=== PATIENT | male | born 1955 | race Caucasian/White ===

== ENCOUNTER 2017-03-08 11:48 | Emergency (ER) | payer SELFPAY ==
[~2017-03-08] VITALS: Ht 185.4 cm; Wt 96.4 kg
[2017-03-08 11:50] VITALS: BP 120/92; PULSE 97; RESP 18; TEMP 98.5; O2SAT 96
[2017-03-08] MEDS ORDERED: DOXY100C PO ×2 (12:33→18:54)
--- NOTE | 2017-03-08 12:34 | PD ---
HPI Chief Complaint: Laceration/Skin Injury Time Seen by Provider: 12:00 Travel History International Travel<30 days: Yes Contact w/Intl Traveler<30days: Yes Name of Country Traveled to: [place] Traveled to known affect area: Yes History of Present Illness HPI 61-year-old male presents emergency department for evaluation of right hand lacerations after falling off his paddle board onto oyster bed. Patient has 3 lacerations to the right palm. He has full range of motion of all 5 digits. He has normal sensation. He reports pain at site of the laceration, severity 7/ 10, nonradiating, no alleviating factors. He denies any other injury from the fall other than the hand laceration. He denies headache, chest pain, abdominal pain, pelvic pain, extremity pain other than the hand. He was in the presence of his brother who is an anesthesiologist who reports state thoroughly washed the wound after the accident. Tetanus status unknown. PFSH Past Medical History Medical History: Denies Significant Hx Medical other: Yes (PSORIASIS) Past Surgical History Other Surgery: Yes (VEIN STRIPPING) Social History Alcohol Use: No Tobacco Use: No Substance Use: No Allergies-Medications (Allergen,Severity, Reaction): Coded Allergies: No Known Allergies (Unverified , 03/08/17) Reported Meds & Prescriptions Reported Meds & Active Scripts Active Doxycycline Hyclate 100 Mg Cap 100 Mg PO BID Review of Systems Except as stated in HPI: all other systems reviewed are Neg Physical Exam Narrative GENERAL: Well-nourished, well-developed patient. SKIN: Focused skin assessment warm/dry. 2 lacerations right hand. HEAD: Normocephalic. EYES: No scleral icterus. No injection or drainage. NECK: Supple, trachea midline. No JVD or lymphadenopathy. CARDIOVASCULAR: Regular rate and rhythm without murmurs, gallops, or rubs. RESPIRATORY: Breath sounds equal bilaterally. No accessory muscle use. GASTROINTESTINAL: Abdomen soft, non-tender, nondistended. MUSCULOSKELETAL: No cyanosis, or edema. Right hand: 2 separate lacerations and multiple abrasions. Laceration #1 measures approximately 3 cm and is a gaping wound at the location of the distal fifth metatarsal on the palm. Laceration # 2 measures 1 cm at the base of the thumb. No tendon injury is visualized. Patient has full range of motion against resistance. No foreign bodies visualized in the wounds Digits are neurovascularly intact with normal sensation. 2+ distal pulses in the extremity. BACK: Nontender without obvious deformity. No CVA tenderness. Data Data Last Documented VS Vital Signs Date Time Temp Pulse Resp B/P Pulse Ox O2 Delivery O2 Flow Rate FiO2 03/08/17 11:50 98.5 97 18 120/92 96 Orders Tetanus/Diphtheria Tox Adult (Tetanus/Di (03/08/17 12:45) MDM Medical Decision Making Medical Screen Exam Complete: Yes Emergency Medical Condition: Yes Differential Diagnosis Right hand laceration, abrasions, contusion Narrative Course 61-year-old male presents emergency department for evaluation of laceration right hand after falling from a paddle board onto oyster beds. He has full range of motion of all digits in the right hand. No tendon injury visualized. X-ray to rule out foreign body was declined by patient. There was a gaping wound at the base of the fifth digit palmar aspect measuring about 3 cm. the wounds were extensively irrigated with 2 L of sterile saline and cleansed. No foreign bodies were visualized. No tendon injury was visualized. Due to the nature of the gaping wound it was loosely approximated. The risk of infection was discussed at length with patient and family members. The patient was started on doxycycline. Close follow-up for wound recheck was discussed. Diagnosis Primary Impression: Hand laceration Qualified Code: S61.411A - Laceration of right hand without foreign body, initial encounter Referrals: Hand Surgeon Additional Instructions: Keep the area clean and dry for 24 hours. Do not submerge the wound in water until it is fully healed. You may cleanse the wound daily each dressing change. Take the antibiotics as prescribed. Follow-up for recheck in 2 days. Return to the emergency department if he develops fever, chills, increased pain rednessswellingdrainage from the site. Sutures need to be removed in 7-10 days. Scripts Doxycycline Hyclate 100 Mg [id number] Mg PO BID #20 CAP Ref 0 Prov:Lani Sandoval 03/08/17 Disposition: 01 DISCHARGE HOME Condition: Stable Lani Sandoval Mar 08, 2017 12:34
[2017-03-08] MEDS ORDERED: TETANUS/DIPHTHERIA TOXOID ADULT 0.5 ML VIAL IM ONE (12:45)
== END 2017-03-08 12:50 | disposition home or self-care (01) ==
LOC: PHEFT 11:48
DX: S61.411A Laceration without foreign body of right hand, initial encounter (principal); W16.112A Fall into natural body of water striking water surface causing other injury, initial encounter; Y93.17 Activity, water skiing and wake boarding; Z23 Encounter for immunization
CPT/HCPCS: 12002; 90471; 90714